=== PATIENT | female | born 1960 | race Caucasian/White ===

== ENCOUNTER → 2024-02-02 07:38 | Outpatient (REF) | payer OTHER, SELFPAY ==
--- NOTE | 2024-02-02 07:49 | CA_ITS ---
Transthoracic Echocardiogram Patient (Last, First, Middle): Vaishali Guajardo, Gender: Female Date of : 1960 Age: 63 Procedure Date: 02/02/2024 Procedure Type: Transthoracic Echocardiogram Location: OP Height: 170.18 cm Weight: 86.18 kg BSA: 1.98 m2 Heart Rate: 68 bpm BP: 110 / 64 mmHg Mechanical Engineering Specialist: SB Referring MD: Chary Huertas MD Symptoms: R07.89 ATYPICAL CHEST PAUN Study Quality: Adequate ECG Rhythm: Sinus Conclusions: - The left ventricular systolic function is normal. The visually estimated ejection fraction is between 55-60%. - No obvious valvular pathology seen on this study. Findings Left Ventricle Normal left ventricular cavity size. There is normal left ventricular wall thickness. The left ventricular systolic function is normal. The visually estimated ejection fraction is between 55-60%. There is no evidence of regional wall motion abnormalities. Evidence suggests grade I (mild) diastolic dysfunction. Right Ventricle Normal right ventricular cavity size. There is mildly decreased right ventricular systolic function. Atria Both atria are normal in size. Aortic Valve There is a normal trileaflet aortic valve. There is no aortic valve stenosis. There is trace (trivial) aortic valve regurgitation. Mitral Valve The mitral valve appears normal. There is trace mitral valve regurgitation. There is no mitral valve stenosis. Pulmonic Valve The pulmonic valve is likely normal. Tricuspid Valve Normal tricuspid valve structure. There is trace tricuspid valve regurgitation. There is no evidence of pulmonary hypertension. Great Vessels The asc aorta is normal in size. Venous The inferior vena cava is normal in size and collapses greater than 50% with inspiration. Pericardium/Pleural There is no evidence of pericardial effusion. Prior Study Comparison No prior study available for comparison. Recommendations, Care & Conclusions No obvious valvular pathology seen on this study. Measurements 2D Linear Measurements IVSd: 0.87 0.6-0.9/0.6-1.0 cm LVIDd: 4.96 3.9-5.3/4.2-5.9 cm LVIDd Index: 2.51 2.4-3.2/2.2-3.1 cm/m2 LVIDs: 3.29 2.0-3.6 cm LVPWd: 0.78 0.7-1.1 cm LA Diam: 4.10 2.7-3.8/3.0-4.0 cm LAIDs Index: 2.07 1.5-2.3 cm/m2 LV Mass: 173.04 67-162/88-224 g LV Mass Index: 87.40 43-95/49-115 g/m2 LVOT Diam: 2.20 3.0+(-)1.3 cm 2D Systolic Function EF 4C: 62.60 >55% EF 2C: 53.10 >55% EF BiP: 58.60 >55% Mitral Valve MV Pk E: 0.48 MV PK A: 0.68 MV Decel Time: 201.00 E/A: 0.70 E'Lateral: 6.85 E'Medial: 4.13 E/E' Med: 11.50 E/E' Lat: 6.90 PHT: 59.00 MVA PHT: 3.73 Decel [place]: 2.37 Aortic Valve AoV Pk Jose: 0.92 AoV Pk Grad: 3.00 LANDON: 3.53 LVOT LVOT Pk Jose: 0.87 LVOT Mn Jose: 0.56 LVOT VTI: 0.17 LVOT Pk Grad: 3.00 LVOT Mn Grad: 2.00 LVOT Diam: 2.20 LVOT Area: 3.80 Diastolic Function MV Pk E: 0.48 MV Pk A: 0.68 E/A: 0.70 E'Medial: 4.13 E/E' Med: 11.50 E' Laterial: 6.85 E/E' Lat: 6.90 Right Ventricle TAPSE (mm): 13.50 TVS' Jose: 9.90 Great Vessels Aorta Sinus of Valsalva: 3.40 2.0-3.5 cm Ao Asc: 3.50 2.1-3.4 cm Pulmonary Veins Pulm Vein S/D 2.30 Pulmonary Valve PV Pk Jose: 0.87 Peak PV Grad: 3.00 Updated in Other Vendor System with Status of Final Billy Ward MD electronically signed on 02/02/2024 2:06:42 PM with status of Final
== END ==
LOC: HO.CARD 07:38
PROVIDERS: PCP Student in an Organized Health Care Education/Training Program; Visit Provider Student in an Organized Health Care Education/Training Program
DX: R07.89 Other chest pain (principal)
CPT/HCPCS: 93306

== ENCOUNTER → 2024-02-02 07:49 | Outpatient (BNV) | payer OTHER, SELFPAY | PROVIDERS: PCP Student in an Organized Health Care Education/Training Program; Visit Provider Internal Medicine | DX: R07.89 Other chest pain (principal) | CPT/HCPCS: 93306 ==

== ENCOUNTER → 2024-03-14 07:41 | Outpatient (REF) | payer OTHER, SELFPAY ==
--- NOTE | 2024-03-14 | CA_ITS ---
Acquisition Time: 2024-03-14 07:55:59 Total Exercise Time: 00:02:00 Test Indications: ABN EKG, RBBB Medications: SEE H Protocol: LEXISCAN Max HR: 096 BPM 62% of Pred: 154 BPM Max BP: 122/080 mmHG Max Work Load: 1.0 METS Pharmacological stress test with Lexiscan injection while sitting and kicking her legs, without anginal symptoms, without arrhhythmias, with normotensive response to injection, with nondiagnoisitic EKGs. Aminophylline 75mg IVP given to reverse Lexiscan. Nuclear images pending. Test reviewed with Dr. Young. Referred By: Chary Huertas Overread By: Mónica Payne
--- NOTE | ~2024-03-14 | NM_ITS ---
Lexiscan Myocardial perfusion study Indication: Chest pain Technique: The patient was brought in for a Lexiscan perfusion study on 03/14/2024 and was injected 0.4 mg of Lexiscan intravenously. Within a minute of this injection 25 mCi of sestamibi was given intravenously. Images were obtained using the SPECT gamma camera interlaced with the gating device. Images were obtained in supine position. Resting perfusion study was performed on 03/16/2024. Patient was administered 25 mCi of sestamibi intravenously at rest. Images were then obtained in supine position. Total DLP 125 mGy-cm. Images were processed with the software and compared side to side in short axis, horizontal long axis and vertical long axis views. Findings: Raw aquisition reviewed. The stress perfusion study showed diminished tracer uptake in the distal lateral wall. There is improved uptake with CT attenuation correction suggestive of soft tissue attenuation artifact. There is also reduced uptake in the inferior wall. With CT attenuation correction, there is improvement suggestive of diaphragmatic attenuation artifact. The gated study shows normal LV systolic function with calculated LVEF of > 70%. LV cavity is normal in size. The gated study shows normal wall thickening and contraction of segments. Resting study shows mildly diminished tracer uptake in the basal part of inferior wall. Improvement with CT attenuation correction suggestive of diaphragmatic attenuation artifact. Gating at rest reveals normal wall motion with ejection fraction at > 70%. The findings are consistent with reversible inferior perfusion defect possibly from diaphragmatic attenuation artifact. NM/NM guilherme perf SPECT rest & str Impression: 1. Myocardial perfusion imaging study shows reversible inferior defect that improves with CT attenuation correction suggestive of diaphragmatic attenuation artifact. However, if there is definite clinical concern for angina, can consider further workup. 2. Gated LVEF is > 70% during stress and rest. 3. Transient ischemic dilatation not present. EKG component of the test reported separately. Electronically signed by: Billy Ward MD 03/16/2024 04:04 PM EDT RP
== END ==
LOC: HO.CARD 07:41
PROVIDERS: PCP Student in an Organized Health Care Education/Training Program; Visit Provider Student in an Organized Health Care Education/Training Program
DX: R07.89 Other chest pain (principal)
CPT/HCPCS: 78452; 93017; A9500; J0280; J2785

== ENCOUNTER → 2024-03-14 07:55 | Outpatient (BNV) | payer MEDICARE, SELFPAY | PROVIDERS: PCP Student in an Organized Health Care Education/Training Program; Visit Provider Nurse Practitioner | DX: R94.31 Abnormal electrocardiogram [ECG] [EKG] (principal); R07.9 Chest pain, unspecified | CPT/HCPCS: 78452; 93016; 93018 ==

== ENCOUNTER 2024-09-12 07:00 | Outpatient (RCR) | payer OTHER, SELFPAY | END 2024-10-12 08:06 | disposition home or self-care (01) | LOC: HO.PTCHIC 07:00 | PROVIDERS: PCP Student in an Organized Health Care Education/Training Program; Visit Provider Podiatrist Foot & Ankle Surgery | DX: M76.71 Peroneal tendinitis, right leg (principal); M25.571 Pain in right ankle and joints of right foot; M76.01 Gluteal tendinitis, right hip | CPT/HCPCS: 97110; 97112; 97162 ==